=== PATIENT | male | born 2000 | race Hispanic/Latino ===

== ENCOUNTER 2020-01-26 11:17 | Emergency (ER) | payer OTHER ==
[~2020-01-26] VITALS: Ht 167.6 cm; Wt 54.4 kg
[2020-01-26] MEDS ORDERED: ONDANSETRON HCL INJ 2MG/ML 2ML 2 MG/ML VIAL IV STA (11:42)
[2020-01-26] MEDS ORDERED: SODIUM CHLORIDE 0.9% 1000ML 1,000 ML IV STA (11:42)
[2020-01-26] MEDS ORDERED: MORPHINE SULFATE 5 MG/ML VIAL IV ONE (11:45)
[2020-01-26] MEDS ORDERED: IOPAMIDOL 370 MG/ML 200 ML INFUS..BTL INJ ONE (11:58)
[2020-01-26] MEDS ORDERED: SODIUM CHLORIDE 0.9% 50ML 50 ML ONE (11:58)
[2020-01-26] MEDS ORDERED: DIATRIZOATE MEGL/DIATRIZOA SOD 30 ML BTL PO ONE (11:58)
[2020-01-26] MEDS ORDERED: MORPHINE SULFATE INJ 4 MG/ML INJ 1ML IV ONE (12:00)
[2020-01-26 12:31] LABS: BASOPHILS % 0.6 % (0.0-1.0); EOSINOPHILS % 0.7 % (0.0-6.0); HEMATOCRIT 49.5 % (38.2-49.6); HEMOGLOBIN 16.2 g/dL (14.0-18.0); LYMPHOCYTES # (AUTO) 1.4 (1.0-3.2); LYMPHOCYTES % 25.5 % (18.0-39.1); MEAN CORPUSCULAR HEMOGLOBIN 29.8 pg (28-32); MEAN CORPUSCULAR HGB CONC 32.7 g/dL (31-35); MEAN CORPUSCULAR VOLUME 91.2 fL (81-99); MONOCYTES # (AUTO) 0.3 (0.2-0.8); MONOCYTES % 6.4 % (4.4-11.3); NEUTROPHILS # (AUTO) 3.6 (2.1-6.9); NEUTROPHILS % 66.6 % (38.7-80.0); PLATELET COUNT 228 x10e3/uL (140-360); RED BLOOD COUNT 5.43 x10e6/uL (4.3-5.7); RED CELL DISTRIBUTION WIDTH 12.1 % (11.7-14.4)
[2020-01-26 12:54] LABS: ALANINE AMINOTRANSFERASE 29 IU/L (0-55); ALBUMIN 4.7 g/dL (3.5-5.0); ALBUMIN/GLOBULIN RATIO 1.5 (0.8-2.0); ALKALINE PHOSPHATASE 54 IU/L (40-150); ANION GAP 12.8 mmol/L (8-16); BLOOD UREA NITROGEN 11 mg/dL (7-26); BUN/CREATININE RATIO 14 (6-25); CALCIUM 10.1 mg/dL (8.4-10.2); CARBON DIOXIDE 26 mmol/L (22-29); CHLORIDE 106 mmol/L (98-107); CREATININE, SERUM 0.78 mg/dL (0.72-1.25); EST GLOMERULAR FILTRATION RATE > 60 ML/MIN (60-); GLUCOSE 107 mg/dL (74-118); POTASSIUM 3.8 mmol/L (3.5-5.1); SODIUM 141 mmol/L (136-145)
--- NOTE | 2020-01-26 13:54 | Diagnostic Imaging Report ---
EXAM: CT Abdomen and Pelvis WITH intravenous contrast INDICATION: Right lower quadrant abdominal pain COMPARISON: None. TECHNIQUE: Abdomen and pelvis were scanned utilizing a multidetector helical scanner from the lung base to the pubic symphysis after administration of IV contrast. Coronal and sagittal reformations were obtained. Routine protocol was performed. Scan was performed during portal venous phase. IV CONTRAST: 100mL of Isovue 370 ORAL CONTRAST: Gastrografin RADIATION DOSE: Total DLP: 192.4 mGy*cm Dose modulation, iterative reconstruction, and/or weight based adjustment of the mA/kV was utilized to reduce the radiation dose to as low as reasonably achievable. FINDINGS: LOWER THORAX: Normal. HEPATOBILIARY: No focal liver lesion. No biliary ductal dilation. Unremarkable gallbladder. SPLEEN: No splenomegaly. PANCREAS: No focal masses or ductal dilatation. ADRENALS: No adrenal nodules. KIDNEYS/URETERS: No hydronephrosis, stones, or solid mass lesions. PELVIC ORGANS/BLADDER: Unremarkable. PERITONEUM / RETROPERITONEUM: No free air or fluid. LYMPH NODES: No lymphadenopathy. VESSELS: Unremarkable. GI TRACT: No abnormal bowel thickening. No bowel obstruction. The appendix is not optimally visualized, however there are no inflammatory changes in the right lower quadrant to suggest acute appendicitis. BONES AND SOFT TISSUES: No acute osseous injury. No suspicious lytic or blastic lesions. IMPRESSION: No acute findings in the abdomen or pelvis. Signed by: Dara Rogers MD on 01/26/2020 1:50 PM
--- NOTE | 2020-01-26 14:43 | Emergency Department Note ---
History of Present Illnes History of Present Illness Chief Complaint: Abdominal Complaints History of Present Illness This is a 20 year old male with Right mid/lower quadrant abdominal pain for several days, worsening. Pt denies any fever, admits to nausea but no vomiting. Historian: Patient Arrival Mode: Car [place] Required: No Onset (how long ago): day(s) Radiation: non-radiation Severity: mild Onset quality: gradual Duration (how long): day(s) Timing of current episode: intermittent Progression: unchanged Chronicity: new Relieving factors: none Exacerbating factors: none Treatments prior to arrival: none Past Medical/Family History Physician Review I have reviewed the patient's past medical and family history. Any updates have been documented here. Past Medical History Recent Fever: No Clinical Suspicion of Infectio: No New/Unexplained Change in Ment: No Past Medical History: None Past Surgical History: None Social History Smoking Cessation: Current every day smoker Counseling Performed: Yes Alcohol Use: Occasional Any Illegal Drug Use: No TB Exposure/Symptoms: No Physically hurt or threatened: No Family History Family history of heart diseas: No Review of Systems Review of Systems Constitutional: no symptoms EENTM: no symptoms Cardiovascular: no symptoms Respiratory: no symptoms Gastrointestinal: abdominal pain Genitourinary: no symptoms Musculoskeletal: no symptoms Neurological: no symptoms Psychological: no symptoms Endocrine: no symptoms Hematological/Lymphatic: no symptoms Review of other systems All other systems reviewed and negative. Physical Exam Related Data Allergies: Coded Allergies: No Known Allergies (Unverified , 01/26/20) Triage Vital Signs Vital Signs Date Time Temp Pulse Resp B/P (MAP) Pulse Ox O2 Delivery O2 Flow Rate FiO2 01/26/20 11:38 98.7 105 18 141/83 99 Vital signs reviewed: Yes Physical Exam CONSTITUTIONAL Constitutional: well-developed, well-nourished HENT HENT: normocephalic, atraumatic, oropharynx clear/moist, nose normal HENT L/R: left ext ear normal, right ext ear normal EYES Eyes: PERRL, conjunctivae normal NECK Neck: ROM normal PULMONARY Pulmonary: effort normal, breath sounds normal CARDIOVASCULAR Cardiovascular: regular rhythm, heart sounds normal, capillary refill normal, normal rate GASTROINTESTINAL Abdominal: soft, bowel sounds normal, tender GENITOURINARY Genitourinary: exam deferred SKIN Skin: warm, dry MUSCULOSKELETAL Musculoskeletal: ROM normal NEUROLOGICAL Neurological: alert, oriented x 3, no gross motor or sensory deficits PSYCHOLOGICAL Psychological: mood/affect normal, judgement normal Results Laboratory Result Diagram: 01/26/20 1146 01/26/20 1146 Laboratory Laboratory Tests Test 01/26/20 11:46 White Blood Count 5.34 x10e3/uL (4.8-10.8) Red Blood Count 5.43 x10e6/uL (4.3-5.7) Hemoglobin 16.2 g/dL (14.0-18.0) Hematocrit 49.5 % (38.2-49.6) Mean Corpuscular Volume 91.2 fL (81-99) Mean Corpuscular Hemoglobin 29.8 pg (28-32) Mean Corpuscular Hemoglobin Concent 32.7 g/dL (31-35) Red Cell Distribution Width 12.1 % (11.7-14.4) Platelet Count 228 x10e3/uL (140-360) Neutrophils (%) (Auto) 66.6 % (38.7-80.0) Lymphocytes (%) (Auto) 25.5 % (18.0-39.1) Monocytes (%) (Auto) 6.4 % (4.4-11.3) Eosinophils (%) (Auto) 0.7 % (0.0-6.0) Basophils (%) (Auto) 0.6 % (0.0-1.0) Neutrophils # (Auto) 3.6 (2.1-6.9) Lymphocytes # (Auto) 1.4 (1.0-3.2) Monocytes # (Auto) 0.3 (0.2-0.8) Eosinophils # (Auto) 0.0 (0.0-0.4) Basophils # (Auto) 0.0 (0.0-0.1) Absolute Immature Granulocyte (auto 0.01 x10e3/uL (0-0.1) Sodium Level 141 mmol/L (136-145) Potassium Level 3.8 mmol/L (3.5-5.1) Chloride Level 106 mmol/L (98-107) Carbon Dioxide Level 26 mmol/L (22-29) Anion Gap 12.8 mmol/L (8-16) Blood Urea Nitrogen 11 mg/dL (7-26) Creatinine 0.78 mg/dL (0.72-1.25) Estimat Glomerular Filtration Rate > 60 ML/MIN (60-) BUN/Creatinine Ratio 14 (6-25) Glucose Level 107 mg/dL (74-118) Calcium Level 10.1 mg/dL (8.4-10.2) Total Bilirubin 1.2 mg/dL (0.2-1.2) Aspartate Amino Transf (AST/SGOT) 25 IU/L (5-34) Alanine Aminotransferase (ALT/SGPT) 29 IU/L (0-55) Alkaline Phosphatase 54 IU/L (40-150) Total Protein 7.8 g/dL (6.5-8.1) Albumin 4.7 g/dL (3.5-5.0) Globulin 3.1 g/dL (2.3-3.5) Albumin/Globulin Ratio 1.5 (0.8-2.0) Lab results reviewed: Yes Imaging Impressions IMPRESSION: No acute findings in the abdomen or pelvis. Critical Care Time Subsequent provider I assumed direction of critical care for this patient from another provider of my specialty. Assessment & Plan Assessment & Plan Problems: (1) Abdominal pain Assessment & Plan -cbc, cmp -CT AP- IVF, pain meds Reassessment Reassessment time: 14:58 (Pt reports improvement in pain, tolerating oral in take-wishes to go home. ) Reassessment This patient presents with abdominal pain of unclear etiology. A CT scan was performed to evaluate for potential causes of the abdominal pain, however, neither the clinical exam nor the CT has identified an emergent etiology for the abdominal pain. Specifically, given the benign exam, the laboratory studies, and unremarkable CT, I have a very low suspicion for appendicitis, ischemic bowel, bowel perforation, or any other life threatening disease. I have discussed with the patient the level of uncertainty with undifferentiated abdominal pain and clearly explained the need to follow-up as noted on the discharge instructions, or return to the Emergency Department immediately if the pain worsens, develops fever, persistent and uncontrollable vomiting, or for any new symptoms or concerns. Last Vital Signs Date Time Temp Pulse Resp B/P (MAP) Pulse Ox O2 Delivery O2 Flow Rate FiO2 01/26/20 11:38 98.7 105 18 141/83 99 Medications in the ED Sodium Chloride 1,000 ml @ 0 mls/hr Q0M STAT IV ; Start 01/26/20 at 11:42; Stop 01/26/20 at 11:43 Morphine Sulfate 4 mg ONCE ONCE IV ; Start 01/26/20 at 11:45; Stop 01/26/20 at 11:46; Status UNV Ondansetron HCl 4 mg NOW STAT IV ; Start 01/26/20 at 11:42; Stop 01/26/20 at 11:43 Sodium Chloride 50 ml @ ud STK-MED ONCE .ROUTE ; Start 01/26/20 at 11:58; Stop 01/26/20 at 11:53; Status DC Diatrizoate Meglum/ Diatrizoate Sod 30 ml STK-MED ONCE PO ; Start 01/26/20 at 11:58; Stop 01/26/20 at 11:53; Status DC Iopamidol 74,000 mg STK-MED ONCE INJ ; Start 01/26/20 at 11:58; Stop 01/26/20 at 11:53; Status DC Morphine Sulfate 4 mg ONCE ONCE IV ; Start 01/26/20 at 12:00; Stop 01/26/20 at 12:01 TERRANCE BASILIO DO January 26, 2020 14:43
== END 2020-01-26 14:55 | disposition home or self-care (01) ==
LOC: ER 11:17
DX: R10.31 Right lower quadrant pain (principal); R11.0 Nausea; F17.210 Nicotine dependence, cigarettes, uncomplicated
CPT/HCPCS: 36415; 74177; 80053; 85025; 99283; J2405; J7030; Q9967

== ENCOUNTER 2020-01-30 20:12 | Emergency (ER) | payer OTHER ==
[~2020-01-30] VITALS: Ht 167.6 cm; Wt 54.4 kg
--- OUTSIDE RECORDS SUMMARY | 2020-01-30 20:17 | XMS REPORT ---
Author Author [facility] t Organization [facility] Address [address] [place] [address] Phone Unavailable Care Team Providers Care Billing Customer Service Representative Name Role Phone NO, PCP PCP Unavailable Rosalee BASILIO Attphys Unavailable Advance Directives Directive Decision Effective Date Termination Date Comments Sour ce Yes N/A [facility] Problems Condition Name Condition Details Condition Category Status Onset Date Resolution Date Last Treatment Date Treating Clinician Comments Source Abdominal pain Problem C [facility] Allergies, Adverse Reactions, Alerts This patient has no known allergies or adverse reactions. Social History Social Habit Start Date Stop Date Quantity Comments Source Sex Assigned At 2000 00:00:00 2000 00:00:00 Male [facility] Medications This patient has no known medications. Vital Signs Vital Name Observation Time Observation Value Comments Source Weight 2020-01-26 11:38:00 120 [lb_av] [facility] BMI (Body Mass Index) 2020-01-26 11:38:00 19.4 kg/m2 [facility] Procedures Procedure Date / Time Performed Performing Clinician Sourc e Computed tomography of abdomen and pelvis with contrast 00:00:00 [facility] Plan of Care Planned Activity Planned Date Details Comments Source Goal Patient referral [code = 9795367 ] [facility] Instructions Abdominal Pain - Adult [facility] Encounters Start Date/Time End Date/Time Encounter Type Admission Type Attendi [facility] Care Department Encounter ID Source 2020-01-26 11:17:00 2020-01-26 14:55:00 Departed Emergency Room 1 TERRANCE BASILIO [facility] [id number] I [facility] Results Test Description Test Time Test Comments Results Result Comments Source CT ABDOMEN/PELVIS W 2020-01-26 13:44:00 [facility] [address] [address] Patient Name: HASEEB NO MR #: [id number] : 2000 Age/Sex: 20/M Req #: [id number] Adm Physician: Ordered by: TERRANCE BASILIO DO Report #: [id number] Location: ER Room/Bed: Procedure: [id number] CT/CT ABDOMEN/PELVIS W Exam Date: 01/26/20 Exam Time: 1315 REPORT STATUS: Signed EXAM: CT Abdomen and Pelvis WITH intravenous contrast INDICATION: Right lower quadrant abdominal pain COMPARISON: None. TECHNIQUE: Abdomen and pelvis were scanned utilizing a multidetector helical scanner from the lung base to the pubic symphysis after administration of IV contrast. Coronal and sagittal reformations were obtained. Routine protocol was performed. Scan was performed during portal venous phase. IV CONTRAST: 100mL of Isovue 370 ORAL CONTRAST: Gastrografin RADIATION DOSE: Total DLP: 192.4 mGy*cm Dose modulation, iterative reconstruction, and/or weight based adjustment of the mA/kV was utilized to reduce the radiation dose to as low as reasonably achievable. FINDINGS: LOWER THORAX: Normal. HEPATOBILIARY: No focal liver lesion. No biliary ductal dilation. Unremarkable gallbladder. SPLEEN: No splenomegaly. PANCREAS: No focal masses or ductal dilatation. ADRENALS: No adrenal nodules. KIDNEYS/URETERS: No hydronephrosis, stones, or solid mass lesions. PELVIC ORGANS/BLADDER: Unremarkable. PERITONEUM / RETROPERITONEUM: No free air or fluid. LYMPH NODES: No lymphadenopathy. VESSELS: Unremarkable. GI TRACT: No abnormal bowel thickening. No bowel ob struction. The appendix is not optimally visualized, however there are no inflammatory changes in the right lower quadrant to suggest acute appendicitis. BONES AND SOFT TISSUES: No acute osseous injury. No suspicious lytic or blastic lesions. IMPRESSION: No acute findings in the abdomen or pelvis. Signed by: Tenzin Bronson MD on 01/26/2020 1:50 PM Dictated By: TENZIN BRONSON MD 1350 Transcribed By: JUVENAL on 01/26/20 1350 COPY TO: TERRANCE BASILIO DO Blood leukocytes automated count (number/volume) 2020-01-26 11:46:00 Test Item White Blood Count (test code = 6690-2) 5.34 [facility] erythrocytes automated count (number/volume)2020-01-26 11:46:00* Test Item Value Reference Range Interpretation Comments Red Blood Count (test code = 789-8) 5.43 [facility] hemoglobin measurement (moles/volume)2020-01-26 11:46:00* Test Item Value Reference Range Interpretation Comments Hemoglobin (test code = 24053-2) 16.2 [facility]enton[facility] blood hematocrit (volume fraction)2020-01-26 11:46:00* Test Item Value Reference Range Interpretation Comments Hematocrit (test code = 4544-3) 49.5 [facility]enton[facility]ated erythrocyte mean corpuscular [id number] 11:46:00* Test Item Value Reference Range Interpretation Comments Mean Corpuscular Volume (test code = 787-2) 91.2 [facility] erythrocyte mean corpuscular hemoglobin (mass per erythrocyte)2020-01-26 11:46:00* Test Item Value Reference Range Interpretation Comments Mean Corpuscular Hemoglobin (test code = 785-6) 29.8 [facility] erythrocyte mean corpuscular hemoglobin concentration measurement (mass/volume)2020-01-26 11:46:00* Test Item Value Reference Range Interpretation Comments Mean Corpuscular Hemoglobin Concent (test code = 786-4) 32.7 [facility]entonRDW [id number] 11:46:00* Test Item Value Reference Range Interpretation Comments Red Cell Distribution Width (test code = 33704-5) 12.1 [facility]enton[facility] blood platelet count (count/volume)2020-01-26 11:46:00* Test Item Value Reference Range Interpretation Comments Platelet Count (test code = 777-3) 228 [facility]enton[facility] blood segmented neutrophil count as percentage of total ekgpkqrlni6377-50-87 11:46:00* Test Item Value Reference Range Interpretation Comments Neutrophils (%) (Auto) (test code = 94324-1) 66.6 [facility]Aut[facility] blood lymphocyte count as percentage ot total agoxuxwaer2722-87-67 11:46:00* Test Item Value Reference Range Interpretation Comments Lymphocytes (%) (Auto) (test code = 736-9) 25.5 [facility]entonAutom[facility] blood monocyte count as percentage of total [id number] 11:46:00* Test Item Value Reference Range Interpretation Comments Monocytes (%) (Auto) (test code = 5905-5) 6.4 [facility] blood eosinophil count as percentage of total [id number] 11:46:00* Test Item Value Reference Range Interpretation Comments Eosinophils (%) (Auto) (test code = 713-8) 0.7 [facility]entonAutom[facility] blood basophil count as percentage of total [id number] 11:46:00* Test Item Value Reference Range Interpretation Comments Basophils (%) (Auto) (test code = 706-2) 0.6 [facility]entonFluoroscopic procedure less than one hour [id number] 11:46:00* Test Item Value Reference Range Interpretation Comments IM GRANULOCYTES % (test code = IM GRANULOCYTES %) 0.2 [facility]entonAutom[facility] blood neutrophil count 2020-01-26 11:46:00* Test Item Value Reference Range Interpretation Comments Neutrophils # (Auto) (test code = 751-8) 3.6 [facility]enton[facility] lymphocytes count (number/volume) 2020-01-26 11:46:00* Test Item Value Reference Range Interpretation Comments Lymphocytes # (Auto) (test code = 64700-8) 1.4 [facility]entonBlood monocytes automated count (number/volume)2020-01-26 11:46:00* Test Item Value Reference Range Interpretation Comments Monocytes # (Auto) (test code = 742-7) 0.3 [facility]Autom[facility] blood eosinophil count 2020-01-26 11:46:00* Test Item Value Reference Range Interpretation Comments Eosinophils # (Auto) (test code = 711-2) 0.0 [facility]entonAutomated blood basophil count (count/volume)2020-01-26 11:46:00* Test Item Value Reference Range Interpretation Comments Basophils # (Auto) (test code = 704-7) 0.0 [facility]entonFluoroscopic procedure less than one hour ridjxuzt1985-73-51 11:46:00* Test Item Value Reference Range Interpretation Comments Absolute Immature Granulocyte (auto (clotilde t code = Absolute Immature Granulocyte (auto) 0.01 [facility] sodium [facility] (moles/volume)2020-01-26 11:46:00* Test Item Value Reference Range Interpretation Comments Sodium Level (test code = 2951-2) 141 [facility] potassium measurement (moles/volume)2020-01-26 11:46:00* Test Item Value Reference Range Interpretation Comments Potassium Level (test code = 2823-3) 3.8 [facility] chloride measurement (moles/volume)2020-01-26 11:46:00* Test Item Value Reference Range Interpretation Comments Chloride Level (test code = 2075-0) 106 [facility] carbon dioxide, total measurement (moles/volume)2020-01-26 11:46:00* Test Item Value Reference Range Interpretation Comments Carbon Dioxide Level (test code = 2028-9) 26 [facility] anion [id number] 11:46:00* Test Item Value Reference Range Interpretation Comments Anion Gap (test code = 03692-3) 12.8 [facility] urea nitrogen measurement (mass/volume)2020-01-26 11:46:00* Test Item Value Reference Range Interpretation Comments Blood Urea Nitrogen (test code = 3094-0) 11 [facility] creatinine measurement (mass/volume)2020-01-26 11:46:00* Test Item Value Reference Range Interpretation Comments Creatinine (test code = 2160-0) 0.78 [facility] urea nitrogen/creatinine mass [id number] 11:46:00* Test Item Value Reference Range Interpretation Comments BUN/Creatinine Ratio (test code = 3097-3) 14 [facility]entonEstimated glomerular filtration rate (GFR) tudihetaurdko1908-12-75 11:46:00* Test Item Value Reference Range Interpretation Comments Estimat Glomerular Filtration Rate (test code = 236137849) > 60 [facility]entonGlucose yudbjzkwtva6586-00-18 11:46:00* Test Item Value Reference Range Interpretation Comments Glucose Level (test code = XTW1389) 107 [facility] calcium measurement (mass/volume)2020-01-26 11:46:00* Test Item Value Reference Range Interpretation Comments Calcium Level (test code = 63414-9) 10.1 [facility] total bilirubin measurement (mass/volume)2020-01-26 11:46:00* Test Item Value Reference Range Interpretation Comments Total Bilirubin (test code = 1975-2) 1.2 [facility]entonFluoroscopic procedure less than one hour [id number] 11:46:00* Test Item Value Reference Range Interpretation Comments Aspartate Amino Transf (AST/SGOT) (test code = Aspartate Amino Transf (AST/SGOT)) 25 [facility]ererum or plasma alanine aminotransferase measurement (enzymatic activity/volume)2020-01-26 11:46:00* Test Item Value Reference Range Interpretation Comments Alanine Aminotransferase (ALT/SGPT) (test code = 1742-6) 29 [facility] protein measurement (mass/volume)2020-01-26 11:46:00* Test Item Value Reference Range Interpretation Comments Total Protein (test code = 2885-2) 7.8 [facility] albumin measurement (mass/volume)2020-01-26 11:46:00* Test Item Value Reference Range Interpretation Comments Albumin (test code = 1751-7) 4.7 [facility]entonPlasma globulin measurement (mass/volume) 2020-01-26 11:46:00* Test Item Value Reference Range Interpretation Comments Globulin (test code = 34304-9) 3.1 [facility] or [facility] albumin/globulin mass [id number] 11:46:00* Test Item Value Reference Range Interpretation Comments Albumin/Globulin Ratio (test code = 1759-0) 1.5 [facility]ererum or plasma alkaline phosphatase measurement (enzymatic activity/volume)2020-01-26 11:46:00* Test Item Value Reference Range Interpretation Comments Alkaline Phosphatase (test code = 6768-6) 54 [facility]
[2020-01-30 21:08] LABS: CLARITY,URINE SL CLOUDY (CLEAR); COLOR,URINE YELLOW (YELLOW)
[2020-01-30 21:09] LABS: BILIRUBIN,URINE SMALL (NEGATIVE); KETONES,URINE 2+ (NEGATIVE); LEUKOCYTE ESTERASE ,URINE NEGATIVE (NEGATIVE); NITRITE,URINE NEGATIVE (NEGATIVE); PROTEIN,URINE DIPSTICK NEGATIVE (NEGATIVE); URINE UROBILINOGEN 0.2 mg/dL (0.2 - 1)
[2020-01-30 21:11] LABS: AMPHETAMINES SCREEN,URINE NEGATIVE (NEGATIVE); BENZODIAZEPINES SCREEN,URINE NEGATIVE (NEGATIVE); PHENCYCLIDINE SCREEN,URINE NEGATIVE (NEGATIVE)
[2020-01-30 21:20] LABS: BACTERIA,URINE MANY /HPF; EPITHELIAL CELLS,URINE RARE /LPF; MUCUS,URINE MANY (RARE)
--- NOTE | 2020-01-30 21:44 | Emergency Department Note ---
History of Present Illnes History of Present Illness Chief Complaint: Back Pain History of Present Illness This is a 20 year old male . Historian: Patient Past Medical/Family History Physician Review I have reviewed the patient's past medical and family history. Any updates have been documented here. Past Medical History Recent Fever: No Clinical Suspicion of Infectio: No New/Unexplained Change in Ment: No Past Medical History: Asthma Past Surgical History: None Family History Family history of heart diseas: Yes Other Last Tetanus: unk Review of Systems Review of Systems Review of other systems All other systems reviewed and negative. Physical Exam Related Data Allergies: Coded Allergies: No Known Allergies (Unverified , 01/26/20) Triage Vital Signs Vital Signs Date Time Temp Pulse Resp B/P (MAP) Pulse Ox O2 Delivery O2 Flow Rate FiO2 01/30/20 20:41 99.5 90 20 136/82 96 Physical Exam CONSTITUTIONAL HENT EYES NECK PULMONARY CARDIOVASCULAR GASTROINTESTINAL GENITOURINARY SKIN MUSCULOSKELETAL NEUROLOGICAL PSYCHOLOGICAL Results Laboratory Laboratory Laboratory Tests Test 01/30/20 20:44 Urine Color Yellow (YELLOW) Urine Clarity Sl cloudy (CLEAR) Urine pH 6 (5 - 7) Urine Specific [place] 1.030 (1.010-1.025) Urine Protein Negative (NEGATIVE) Urine Glucose (UA) Negative (NEGATIVE) Urine Ketones 2+ (NEGATIVE) Urine Blood Negative (NEGATIVE) Urine Nitrite Negative (NEGATIVE) Urine Bilirubin Small (NEGATIVE) Urine Urobilinogen 0.2 mg/dL (0.2 - 1) Urine Leukocyte Esterase Negative (NEGATIVE) Urine RBC None /HPF (0-5) Urine WBC None /HPF (0-5) Urine Epithelial Cells Rare /LPF (NONE) Urine Bacteria Many /HPF (NONE) Urine Mucus Many (RARE) Urine Opiates Screen Negative (NEGATIVE) Urine Methadone Screen Negative (NEGATIVE) Urine Barbiturates Screen Negative (NEGATIVE) Urine Phencyclidine Screen Negative (NEGATIVE) Urine Amphetamines Screen Negative (NEGATIVE) Urine Methamphetamines Screen Negative (NEGATIVE) Urine Benzodiazepines Screen Negative (NEGATIVE) Urine Cocaine Screen Negative (NEGATIVE) Urine Cannabinoids Screen Positive (NEGATIVE) Critical Care Time Subsequent provider I assumed direction of critical care for this patient from another provider of my specialty. Assessment & Plan Last Vital Signs Date Time Temp Pulse Resp B/P (MAP) Pulse Ox O2 Delivery O2 Flow Rate FiO2 01/30/20 20:41 99.5 90 20 136/82 96 TERRANCE BASILIO, DO January 30, 2020 21:44
== END 2020-01-30 22:08 | disposition home or self-care (01) ==
LOC: ER 20:12
DX: M54.5 Low back pain (principal); J45.909 Unspecified asthma, uncomplicated
CPT/HCPCS: 80307; 81001; 99282